=== PATIENT | male | born 1995 | race Caucasian/White ===

== ENCOUNTER 2019-03-02 16:27 | Emergency (ER) | payer SELFPAY ==
[~2019-03-02] VITALS: Ht 180.3 cm; Wt 87.0 kg
[2019-03-02] MEDS ORDERED: HALOPERIDOL LACTATE 5MG/ML VIAL IM ONE (17:15)
[2019-03-02] MEDS ORDERED: OLANZAPINE 10 MG/VIAL IM ONE (17:15)
[2019-03-02] MEDS ORDERED: SODIUM CHLORIDE 0.9% 1,000 ML IV ONE (17:22)
[2019-03-02 18:03] LABS: BASOPHILS % 0.4 % (0.0-2.0); EOSINOPHILS % 0.1 % (0.0-5.0); HEMATOCRIT. 38.1 % (42.0-52.0); HEMOGLOBIN. 12.7 g/dL (14.0-18.0); LYMPHOCYTES % 15.4 % (20.0-50.0); MEAN CORPUSCULAR HEMOGLOBIN 29.8 pg (28.0-32.0); MEAN CORPUSCULAR VOLUME 89.7 fL (80.0-94.0); MONOCYTES % 7.3 % (2.0-8.0); NEUTROPHILS % 76.8 % (40.0-76.0); PLATELET 301 x1000/uL (130-400); RED BLOOD CELL COUNT 4.25 mill/uL (4.7-6.1); RED CELL DISTRIBUTION WIDTH 13.2 % (11.6-14.6)
[2019-03-02 18:06] LABS: CHLORIDE 112 mEq/L (98-107)
[2019-03-02 18:11] LABS: ETHANOL BLOOD < 10 mg/dL
[2019-03-02 18:26] LABS: CLARITY URINE CLOUDY (CLEAR); COLOR URINE DARK YELLOW (YELLOW); KETONES URINE 1+ (NEGATIVE); LEUKOCYTE ESTERASE URINE TRACE (NEGATIVE); NITRITE URINE NEGATIVE (NEGATIVE); OCCULT BLOOD URINE NEGATIVE (NEGATIVE); PH URINE 5.5 (4.5-8.0); PROTEIN URINE 1+ (NEGATIVE)
[2019-03-02 18:43] LABS: *AMPHETAMINES SCREEN URINE PRESUMTIVE POSITIVE (NEGATIVE); *BARBITURATES SCREEN URINE NEGATIVE (NEGATIVE); *BENZODIAZEPINES SCREEN URINE PRESUMTIVE POSITIVE (NEGATIVE); *COCAINE SCREEN URINE NEGATIVE (NEGATIVE)
[2019-03-02 18:44] LABS: CANNABINOID URINE SCREEN PRESUMTIVE POSITIVE (NEGATIVE); METHADONE URINE SCREEN NEGATIVE (NEGATIVE); OPIATES URINE SCREEN NEGATIVE (NEGATIVE); PHENCYCLIDINE URINE SCREEN NEGATIVE (NEGATIVE)
[2019-03-02] MEDS ORDERED: LORAZEPAM 2MG/ML CPJ IV ONE (18:45)
[2019-03-03] MEDS ORDERED: POTASSIUM CHLORIDE 20MEQ TABLET SR PO ONE
[2019-03-03 06:00] VITALS: BP 121/75
== END 2019-03-03 06:08 | disposition home or self-care (01) ==
LOC: ER 16:27 → EDBD 16:27 → ER 03-03 06:08
DX: T43.621A Poisoning by amphetamines, accidental (unintentional), initial encounter (principal); R41.82 Altered mental status, unspecified; Y92.89 Other specified places as the place of occurrence of the external cause
CPT/HCPCS: 36415; 80053; 80305; 80307; 80320; 80329; 81003; 85025; 93005; 96372; 96374; 99284; J1630; J2060; J3490; J7030; 96361; G0480

== ENCOUNTER 2020-12-21 19:08 | Inpatient (IN) | payer SELFPAY ==
[~2020-12-21] VITALS: Ht 175.3 cm; Wt 128.8 kg
[2020-12-21] MEDS ORDERED: SODIUM CHLORIDE 0.9% 1,000 ML IV ONE (21:00)
[2020-12-21] MEDS ORDERED: HALOPERIDOL LACTATE 5MG/ML VIAL IM ONE ×2 (21:00→22:00)
[2020-12-21 22:35] LABS: MEAN CORPUSCULAR HEMOGLOBIN 29.5 pg (28.0-32.0); MEAN CORPUSCULAR VOLUME 92.7 fL (80.0-94.0); MEAN PLATELET VOLUME 10.5 fl (7.4-10.4); PLATELET 345 x1000/uL (130-400); RED BLOOD CELL COUNT 5.07 mill/uL (4.7-6.1); RED CELL DISTRIBUTION WIDTH 12.9 % (11.6-14.6)
[2020-12-21 22:38] LABS: CHLORIDE 77 mEq/L (98-107)
[2020-12-21 22:42] LABS: ETHANOL BLOOD < 10 mg/dL
[2020-12-21 23:06] LABS: PLATELET ESTIMATE NORMAL
[2020-12-21 23:15] LABS: BETA HYDROXYBUTYRATE 12.9 mMol/L (0.0-0.3)
[2020-12-21] MEDS ORDERED: LACTATED RINGERS 1,000 ML IV SCH (23:15)
[2020-12-21] MEDS ORDERED: INSULIN REGULAR (DRIP) 100 UNITS in SODIUM CHLORIDE 0.9% 100 ML IV ONE (23:15)
[2020-12-21] MEDS ORDERED: SODIUM CHL 0.9% + KCL 20MEQ/L 1,000 ML IV SCH (23:15)
[2020-12-21 23:29] LABS: PHOSPHORUS 5.7 mg/dL (2.5-4.9)
[2020-12-22] VITALS (45 sets, daily range): BP systolic 127–185; BP diastolic 72–109
[2020-12-22 00:49] LABS: CLARITY URINE CLEAR (CLEAR); COLOR URINE YELLOW (YELLOW); KETONES URINE 4+ (NEGATIVE); LEUKOCYTE ESTERASE URINE NEGATIVE (NEGATIVE); NITRITE URINE NEGATIVE (NEGATIVE); OCCULT BLOOD URINE 2+ (NEGATIVE); PROTEIN URINE 1+ (NEGATIVE); SPECIFIC GRAVITY URINE 1.025 (1.005-1.030); UROBILINOGEN URINE 0.2 E.U./dL (0.2-1.0)
[2020-12-22 00:49] LABS: CHLORIDE 86 mEq/L (98-107)
[2020-12-22] MEDS ORDERED: POTASSIUM CHLORIDE INJ 30 MEQ in DEXT 5%/0.9% NACL 1,000 ML IV PRN (01:00)
[2020-12-22] MEDS ORDERED: LACTATED RINGERS 1,000 ML IV PRN (01:00)
[2020-12-22 01:30] LABS: BETA HYDROXYBUTYRATE 11.2 mMol/L (0.0-0.3)
[2020-12-22 02:21] LABS: CHLORIDE 97 mEq/L (98-107)
[2020-12-22] MEDS ORDERED: ACETAMINOPHEN 325MG TABLET PO PRN (02:45)
[2020-12-22] MEDS ORDERED: MAGNESIUM/ALUMINUM HYDROXIDE/SIMETHICONE 30ML UDC PO PRN (02:45)
[2020-12-22] MEDS ORDERED: GUAIFENESIN 200MG/10ML SUGAR FREE UDC PO PRN (02:45)
[2020-12-22] MEDS ORDERED: DIPHENHYDRAMINE 50MG/ML VIAL IV PRN (02:45)
[2020-12-22] MEDS ORDERED: ONDANSETRON HCL 4MG/2ML INJ IV PRN (02:45)
[2020-12-22] MEDS ORDERED: DOCUSATE SODIUM 100MG CAPSULE PO PRN (02:45)
[2020-12-22] MEDS ORDERED: ACETAMINOPHEN 650MG SUPP PR PRN (02:45)
[2020-12-22] MEDS ORDERED: MORPHINE SULFATE 2 MG/ML CPJ (NOT FOR IM USE) IV PRN (02:45)
[2020-12-22] MEDS ORDERED: IPRATROPIUM/ALBUTEROL 0.5-3(2.5)MG/3ML NEB HHN PRN (02:45)
[2020-12-22] MEDS ORDERED: LACTATED RINGERS 1,000 ML IV SCH ×3 (03:15→05:30)
[2020-12-22] MEDS ORDERED: DEXTROSE 5% WATER 1,000 ML IV ONE (03:15)
[2020-12-22] MEDS ORDERED: SODIUM BICARBONATE 8.4% 1 MEQ/ML 50ML SYR IV ONE ×2 (03:15→07:45)
[2020-12-22] MEDS ORDERED: KCL 20MEQ/100ML PREMIX 100 ML IV PRN (03:30)
[2020-12-22] MEDS ORDERED: LACTATED RINGERS 1,000 ML IV NR (04:00)
[2020-12-22] MEDS ORDERED: DEXTROSE 50% WATER 50ML SYRINGE IV PRN ×2 (04:00)
[2020-12-22] MEDS ORDERED: HALOPERIDOL LACTATE 5MG/ML VIAL IM PRN (04:15)
[2020-12-22 05:00] LABS: CHLORIDE 100 mEq/L (98-107)
[2020-12-22] MEDS: BLOOD SUGAR DIAGNOSTIC STRIP TEST SCH ×18 (05:00→23:21)
[2020-12-22] MEDS: INSULIN REGULAR (DRIP) 100 UNITS in SODIUM CHLORIDE 0.9% 100 ML IV SCH ×2 (05:00→14:39)
[2020-12-22 05:01] LABS: HEMATOCRIT. 46.7 % (42.0-52.0); HEMOGLOBIN. 15.6 g/dL (14.0-18.0); MEAN CORPUSCULAR HEMOGLOBIN 29.2 pg (28.0-32.0); MEAN CORPUSCULAR VOLUME 87.1 fL (80.0-94.0); MEAN PLATELET VOLUME 10.4 fl (7.4-10.4); PLATELET 288 x1000/uL (130-400); RED BLOOD CELL COUNT 5.36 mill/uL (4.7-6.1); RED CELL DISTRIBUTION WIDTH 12.3 % (11.6-14.6)
[2020-12-22 05:09] LABS: CREATINE KINASE 348 IU/L (39-308)
[2020-12-22 05:10] LABS: PHOSPHORUS 1.5 mg/dL (2.5-4.9)
[2020-12-22 05:11] LABS: LDL CHOLESTEROL 196 mg/dL (5-100)
[2020-12-22 05:13] LABS: HDL CHOLESTEROL 29 mg/dL (40-59)
[2020-12-22] MEDS: LORAZEPAM 2MG/ML CPJ IV PRN ×2 (05:28→12:49)
[2020-12-22] MEDS: SODIUM BICARBONATE 150 MEQ in DEXTROSE 5% WATER 1,000 ML IV SCH ×2 (05:49→16:46)
[2020-12-22 07:31] LABS: BG BASE EXCESS -15.6 mmol/L (-2.0-2.0); BG FRACTION INSPIRED OXYGEN 21; BG HCO3 ACT 8.8 mmol/L (22.0-26.0); BG METHEMOGLOBIN 0.4 % (0.0-1.5); BG OXYHEMOGLOBIN 96.6 % (94.0-97.0); BG PCO2 19.9 mmHg (35.0-45.0); BG PH 7.264 (7.350-7.450); BG PO2 100.1 mmHg (75.0-100.0); BG SAMPLE SITE RIGHT BRACHIAL; BG TOTAL HEMOGLOBIN 15.9 g/dL (12.0-18.0); BG VENT MODE ROOM AIR
[2020-12-22] MEDS ORDERED: SODIUM BICARBONATE 8.4% 1 MEQ/ML 50ML SYR IV SCH (08:00)
[2020-12-22] MEDS ORDERED: INSULIN REGULAR (DRIP) 100 UNITS in SODIUM CHLORIDE 0.9% 99 ML IV PRN (09:00)
[2020-12-22 09:06] LABS: BG BASE EXCESS -10.7 mmol/L (-2.0-2.0); BG CARBOXYHEMOGLOBIN 0.7 % (0.5-1.5); BG DEOXYHEMOGLOBIN 2.1 % (0.0-5.0); BG FRACTION INSPIRED OXYGEN 21; BG HCO3 ACT 12.1 mmol/L (22.0-26.0); BG METHEMOGLOBIN 0.4 % (0.0-1.5); BG OXYGEN SATURATION 97.9 % (92.0-98.5); BG OXYHEMOGLOBIN 96.8 % (94.0-97.0); BG PCO2 21.9 mmHg (35.0-45.0); BG PH 7.361 (7.350-7.450); BG PO2 97.7 mmHg (75.0-100.0); BG SAMPLE SITE RIGHT BRACHIAL; BG TOTAL HEMOGLOBIN 16.4 g/dL (12.0-18.0); BG VENT MODE ROOM AIR
[2020-12-22 10:14] LABS: CHLORIDE 104 mEq/L (98-107)
[2020-12-22] MEDS ORDERED: POTASSIUM PHOS,M-BASIC-D-BASIC 20 MMOL in DEXT 5% WATER 243.3333 ML IV SCH (11:00)
[2020-12-22 11:39] LABS: PLATELET ESTIMATE NORMAL
[2020-12-22 12:39] LABS: HEPATITIS B SURFACE ANTIGEN NEGATIVE
[2020-12-22 13:08] LABS: HEPATITIS A AB IGM NEGATIVE (NEGATIVE)
[2020-12-22] MEDS ORDERED: POTASSIUM CHLORIDE INJ 60 MEQ in DEXT 5% WATER 500 ML IV SCH (15:00)
[2020-12-22] MEDS ORDERED: INSULIN REGULAR (DRIP) 100 UNITS in SODIUM CHLORIDE 0.9% 99 ML IV SCH (18:15)
[2020-12-22 19:20] LABS: CHLORIDE 103 mEq/L (98-107)
[2020-12-22] MEDS ORDERED: INSULIN REGULAR (DRIP) 100 UNITS in SODIUM CHLORIDE 0.9% 100 ML IV SCH (20:00)
[2020-12-22] MEDS: CLONIDINE 0.1MG TABLET PO PRN (20:27)
[2020-12-23] VITALS (42 sets, daily range): BP systolic 100–188; BP diastolic 54–103
[2020-12-23] MEDS: BLOOD SUGAR DIAGNOSTIC STRIP TEST SCH ×22 (00:09→23:00)
[2020-12-23 00:48] LABS: CHLORIDE 103 mEq/L (98-107)
[2020-12-23] MEDS ORDERED: POTASSIUM CHLORIDE INJ 60 MEQ in DEXT 5% WATER 500 ML IV NR (03:00)
[2020-12-23] MEDS: SODIUM BICARBONATE 150 MEQ in DEXTROSE 5% WATER 1,000 ML IV SCH (05:13)
[2020-12-23 06:01] LABS: BASOPHILS % 0.6 % (0.0-2.0); EOSINOPHILS % 0.4 % (0.0-5.0); HEMATOCRIT. 42.2 % (42.0-52.0); HEMOGLOBIN. 14.8 g/dL (14.0-18.0); LYMPHOCYTES % 12.5 % (20.0-50.0); MEAN CORPUSCULAR HEMOGLOBIN 29.2 pg (28.0-32.0); MEAN CORPUSCULAR VOLUME 83.3 fL (80.0-94.0); MEAN PLATELET VOLUME 10.2 fl (7.4-10.4); MONOCYTES % 9.9 % (2.0-8.0); NEUTROPHILS % 76.6 % (40.0-76.0); PLATELET 261 x1000/uL (130-400); RED BLOOD CELL COUNT 5.07 mill/uL (4.7-6.1); RED CELL DISTRIBUTION WIDTH 12.4 % (11.6-14.6)
[2020-12-23 06:03] LABS: CHLORIDE 104 mEq/L (98-107)
[2020-12-23 06:16] LABS: AMYLASE 161 IU/L (25-115)
[2020-12-23] MEDS: INSULIN REGULAR (DRIP) 100 UNITS in SODIUM CHLORIDE 0.9% 100 ML IV SCH ×2 (06:17→19:37)
[2020-12-23 06:19] LABS: CREATINE KINASE 106 IU/L (39-308)
[2020-12-23 06:21] LABS: PHOSPHORUS 0.3 mg/dL (2.5-4.9)
[2020-12-23] MEDS ORDERED: POTASSIUM PHOS,M-BASIC-D-BASIC 30 MMOL in SODIUM CHLORIDE 0.9% 500 ML IV ONE (07:30)
[2020-12-23 08:00] LABS: *BARBITURATES SCREEN URINE NEGATIVE (NEGATIVE); CANNABINOID URINE SCREEN PRESUMTIVE POSITIVE (NEGATIVE); METHADONE URINE SCREEN NEGATIVE (NEGATIVE); OPIATES URINE SCREEN NEGATIVE (NEGATIVE); PHENCYCLIDINE URINE SCREEN NEGATIVE (NEGATIVE)
[2020-12-23 08:01] LABS: *AMPHETAMINES SCREEN URINE NEGATIVE (NEGATIVE); *BENZODIAZEPINES SCREEN URINE NEGATIVE (NEGATIVE); *COCAINE SCREEN URINE NEGATIVE (NEGATIVE)
[2020-12-23 12:54] LABS: CHLORIDE 104 mEq/L (98-107)
[2020-12-23] MEDS: SODIUM CHL 0.45% + KCL 20MEQ/L 1,000 ML IV SCH (14:21)
[2020-12-23] MEDS ORDERED: LIDOCAINE HCL 1% 20ML VIAL (Pyxis) INJ ONE (14:48)
[2020-12-23] MEDS: CLONIDINE 0.1MG TABLET PO PRN (16:58)
[2020-12-23 17:48] LABS: PHOSPHORUS 1.1 mg/dL (2.5-4.9)
[2020-12-23 21:11] LABS: CLARITY URINE CLOUDY (CLEAR); COLOR URINE YELLOW (YELLOW); KETONES URINE 4+ (NEGATIVE); LEUKOCYTE ESTERASE URINE NEGATIVE (NEGATIVE); NITRITE URINE NEGATIVE (NEGATIVE); OCCULT BLOOD URINE TRACE (NEGATIVE); PROTEIN URINE TRACE (NEGATIVE); SPECIFIC GRAVITY URINE 1.026 (1.005-1.030)
[2020-12-23 21:52] LABS: CHLORIDE 102 mEq/L (98-107)
[2020-12-24] VITALS (45 sets, daily range): BP systolic 108–189; BP diastolic 49–112
[2020-12-24] MEDS: BLOOD SUGAR DIAGNOSTIC STRIP TEST SCH ×24 (00:43→23:25)
[2020-12-24] MEDS: SODIUM CHL 0.45% + KCL 20MEQ/L 1,000 ML IV SCH ×2 (03:07→13:38)
[2020-12-24] MEDS: INSULIN REGULAR (DRIP) 100 UNITS in SODIUM CHLORIDE 0.9% 100 ML IV SCH ×2 (05:39→18:37)
[2020-12-24 06:06] LABS: CHLORIDE 102 mEq/L (98-107)
[2020-12-24 06:11] LABS: BASOPHILS % 0.2 % (0.0-2.0); EOSINOPHILS % 0.8 % (0.0-5.0); HEMATOCRIT. 33.3 % (42.0-52.0); HEMOGLOBIN. 11.8 g/dL (14.0-18.0); LYMPHOCYTES % 17.1 % (20.0-50.0); MEAN CORPUSCULAR HEMOGLOBIN 30.2 pg (28.0-32.0); MEAN CORPUSCULAR VOLUME 84.9 fL (80.0-94.0); MEAN PLATELET VOLUME 9.7 fl (7.4-10.4); NEUTROPHILS % 72.9 % (40.0-76.0); PLATELET 183 x1000/uL (130-400); RED BLOOD CELL COUNT 3.92 mill/uL (4.7-6.1); RED CELL DISTRIBUTION WIDTH 12.2 % (11.6-14.6)
[2020-12-24 06:15] LABS: AMYLASE 90 IU/L (25-115)
[2020-12-24 06:17] LABS: CREATINE KINASE 60 IU/L (39-308)
[2020-12-24] MEDS ORDERED: POTASSIUM CHLORIDE INJ 60 MEQ in DEXT 5% WATER 500 ML IV SCH (09:00)
[2020-12-24 11:45] LABS: PHOSPHORUS 1.2 mg/dL (2.5-4.9)
[2020-12-24] MEDS: METOCLOPRAMIDE HCL 10MG/2ML VIAL IV SCH ×2 (13:38→17:11)
[2020-12-24] MEDS: CLONIDINE 0.1MG TABLET PO PRN (17:05)
[2020-12-24] MEDS ORDERED: SODIUM BICARBONATE 8.4% 1 MEQ/ML 50ML SYR IV ONE (19:45)
[2020-12-24] MEDS ORDERED: SODIUM BICARBONATE IV ONE (20:30)
[2020-12-24] MEDS ORDERED: WATER IV ONE (20:30)
[2020-12-24] MEDS ORDERED: DEXT 5% IV ONE (20:30)
[2020-12-24 20:48] LABS: CHLORIDE 104 mEq/L (98-107)
[2020-12-25] VITALS (47 sets, daily range): BP systolic 114–165; BP diastolic 24–96
[2020-12-25] MEDS: BLOOD SUGAR DIAGNOSTIC STRIP TEST SCH ×24 (00:06→23:20)
[2020-12-25] MEDS: SODIUM CHL 0.45% + KCL 20MEQ/L 1,000 ML IV SCH ×2 (03:01→17:06)
[2020-12-25] MEDS: INSULIN REGULAR (DRIP) 100 UNITS in SODIUM CHLORIDE 0.9% 100 ML IV SCH ×2 (03:03→13:25)
[2020-12-25 04:50] LABS: BASOPHILS % 0.7 % (0.0-2.0); EOSINOPHILS % 1.6 % (0.0-5.0); HEMATOCRIT. 32.4 % (42.0-52.0); HEMOGLOBIN. 11.3 g/dL (14.0-18.0); LYMPHOCYTES % 25.2 % (20.0-50.0); MEAN CORPUSCULAR HEMOGLOBIN 29.5 pg (28.0-32.0); MEAN CORPUSCULAR VOLUME 84.6 fL (80.0-94.0); MONOCYTES % 8.3 % (2.0-8.0); NEUTROPHILS % 64.2 % (40.0-76.0); PLATELET 215 x1000/uL (130-400); RED BLOOD CELL COUNT 3.83 mill/uL (4.7-6.1); RED CELL DISTRIBUTION WIDTH 12.4 % (11.6-14.6)
[2020-12-25 04:52] LABS: CHLORIDE 100 mEq/L (98-107)
[2020-12-25 04:56] LABS: AMYLASE 90 IU/L (25-115)
[2020-12-25 04:58] LABS: CREATINE KINASE 40 IU/L (39-308)
[2020-12-25] MEDS: METOCLOPRAMIDE HCL 10MG/2ML VIAL IV SCH ×5 (05:54→23:20)
[2020-12-25] MEDS ORDERED: POTASSIUM CHLORIDE 20MEQ TABLET SR PO SCH (06:00)
[2020-12-25] MEDS ORDERED: POTASSIUM CHLORIDE INJ 60 MEQ in DEXT 5% WATER 500 ML IV SCH (07:00)
[2020-12-25 07:08] LABS: *CREATININE RANDOM URINE 28.3 mg/dL (Not Estab.); MICROALBUMIN RANDOM URINE 14.6 ug/mL (Not Estab.)
[2020-12-25 11:40] LABS: PHOSPHORUS 1.2 mg/dL (2.5-4.9)
[2020-12-25] MEDS ORDERED: SODIUM PHOS,M-BASIC-D-BASIC 30 MM in DEXT 5% WATER 500 ML IV NR (14:00)
[2020-12-25 14:35] LABS: PHOSPHORUS 1.3 mg/dL (2.5-4.9)
[2020-12-25 18:17] LABS: CHLORIDE 104 mEq/L (98-107)
[2020-12-26] VITALS (38 sets, daily range): BP systolic 113–166; BP diastolic 39–124
[2020-12-26] MEDS: BLOOD SUGAR DIAGNOSTIC STRIP TEST SCH ×13 (00:23→17:54)
[2020-12-26] MEDS: INSULIN REGULAR (DRIP) 100 UNITS in SODIUM CHLORIDE 0.9% 100 ML IV SCH (00:48)
[2020-12-26] MEDS: METOCLOPRAMIDE HCL 10MG/2ML VIAL IV SCH ×3 (05:38→18:00)
[2020-12-26] MEDS: SODIUM CHL 0.45% + KCL 20MEQ/L 1,000 ML IV SCH (05:39)
[2020-12-26 06:03] LABS: HEMATOCRIT. 33.5 % (42.0-52.0); HEMOGLOBIN. 11.5 g/dL (14.0-18.0); MEAN CORPUSCULAR HEMOGLOBIN 29.4 pg (28.0-32.0); MEAN CORPUSCULAR VOLUME 85.4 fL (80.0-94.0); MEAN PLATELET VOLUME 9.1 fl (7.4-10.4); PLATELET 307 x1000/uL (130-400); RED BLOOD CELL COUNT 3.92 mill/uL (4.7-6.1); RED CELL DISTRIBUTION WIDTH 12.2 % (11.6-14.6)
[2020-12-26 06:15] LABS: CHLORIDE 102 mEq/L (98-107)
[2020-12-26 06:20] LABS: PHOSPHORUS 2.6 mg/dL (2.5-4.9)
[2020-12-26 10:50] LABS: AMYLASE 108 IU/L (25-115); PLATELET ESTIMATE NORMAL
[2020-12-26] MEDS ORDERED: POTASSIUM CHLORIDE 20MEQ TABLET SR PO SCH (11:00)
[2020-12-26] MEDS ORDERED: DEXTROSE 50% WATER 50ML SYRINGE IV PRN (11:15)
[2020-12-26] MEDS ORDERED: INSU100I28 SQ ×2 (11:40→14:18)
[2020-12-26] MEDS ORDERED: POTASSIUM CHLORIDE INJ 40 MEQ in DEXT 5% WATER 250 ML IV SCH (12:00)
[2020-12-26] MEDS ORDERED: INSULIN GLARGINE UD 100 UNITS/ML SYR SUBCUT NR (13:00)
[2020-12-26] MEDS: INSULIN LISPRO 100 UNITS/ML SUBCUT SCH ×2 (13:20→18:07)
[2020-12-26] MEDS ORDERED: INSULIN GLARGINE UD 100 UNITS/ML SYR SUBCUT SCH (22:00)
[2020-12-28] MEDS ORDERED: BLOO-1613 MC (19:44)
[2020-12-28] MEDS ORDERED: METF-416 MT (19:44)
[2020-12-28] MEDS ORDERED: [UNRECOGNIZED DRUG - CODE] MC (19:44)
== END 2020-12-26 23:00 | disposition home or self-care (01) | DRG 282 ==
LOC: ER 19:08 → CVICU 23:08 → EDBEDREQ 23:10 → EDBEDREQTM 23:10 → CANRESERV 23:36 → ENRESERV 23:36
PROVIDERS: ADMIT Family Medicine Adult Medicine; ATTEND Family Medicine Adult Medicine
PROC: 02HV33Z Insertion of Infusion Device into Superior Vena Cava, Percutaneous Approach (ICD-10-PCS; principal; 2020-12-23)
PROC: B548ZZA Ultrasonography of Superior Vena Cava, Guidance (ICD-10-PCS; 2020-12-23)
DX: K85.90 Acute pancreatitis without necrosis or infection, unspecified (principal); G92 Toxic encephalopathy; E11.10 Type 2 diabetes mellitus with ketoacidosis without coma; N17.9 Acute kidney failure, unspecified; R16.0 Hepatomegaly, not elsewhere classified; E83.42 Hypomagnesemia; E83.39 Other disorders of phosphorus metabolism; M62.82 Rhabdomyolysis; E87.8 Other disorders of electrolyte and fluid balance, not elsewhere classified; F17.200 Nicotine dependence, unspecified, uncomplicated; E87.1 Hypo-osmolality and hyponatremia; E86.9 Volume depletion, unspecified; E87.5 Hyperkalemia; E78.1 Pure hyperglyceridemia; E87.6 Hypokalemia; K76.0 Fatty (change of) liver, not elsewhere classified; Z91.14 Patient's other noncompliance with medication regimen
CPT/HCPCS: 36415; 36600; 71045; 76700; 76937; 80048; 80053; 80061; 80076; 80305; 80320; 81003; 82010; 82043; 82150; 82248; 82375; 82550; 82570; 82805; 82962; 83036; 83605; 83735; 84100; 84132; 84484; 85025; 86705; 86709; 86803; 87340; 99285; C1725; J1630; J1815; J2060; J2765; J3480; J3490; J7030; J7040; J7050; J7060; J7070; A4315; G0480